=== PATIENT | female | born 1960 | race Caucasian/White ===

== ENCOUNTER 2020-05-11 15:58 | Emergency (ER) | payer MEDICARE, BC, SELFPAY ==
[2020-05-11 16:15] VITALS: BP 135/84; PULSE 73; RESP 16; TEMP 36.8; O2SAT 99; BMI 25.8
--- NOTE | 2020-05-11 17:57 | PC.NURSE ---
Patient has had long standing history of uti or uretheral spasm. Currently on Cipro and OTC pyridum for urinary symptoms. Patient states she has had a change in stream I feel like I have to push to get it out Has noticed some bodyaches, fatigue, and nausea
[2020-05-11 18:03] LABS: Add Manual Diff / Slide Review NO; Basophils Absolute Auto 0 /uL (0-100); Basophils Percent Auto 0.6 % (0-2); Eosinophils Absolute Auto 100 /uL (0-450); Hematocrit 39.9 % (36-46); Hemoglobin 13.2 g/dL (12.0-16.0); Lymphocytes Absolute Auto 1400 /uL (1100-4500); Lymphocytes Percent Auto 26.1 % (25-40); Mean Corpuscular Hemoglobin 27.7 PG (26-34); Mean Corpuscular Volume 83.9 fL (80-100); Monocytes Absolute Auto 400 /uL (0-900); Monocytes Percent Auto 7.2 % (3-14); Neutrophils Absolute Auto 3400 /uL (1500-7000); Neutrophils Percent Auto 64.1 % (50-75); Platelet Count 291 X10^3/uL (150-400); Red Blood Cell Count 4.76 X10^6/uL (4.0-5.2); Red Cell Distribution Width 14.1 % (11.6-14.8); White Blood Cell Count 5.3 X10^3/uL (4.5-11.0)
[2020-05-11 18:08] LABS: Prothrombin Time 10.9 SECONDS (10.1-12.7)
[2020-05-11 18:10] LABS: PTT Partial Thromboplastin Tim 33 SECONDS (26.4-36.2)
[2020-05-11 18:13] LABS: Alanine Aminotransferase 52 IU/L (<35); Albumin 4.4 g/dL (3.5-5.0); Albumin Globulin Ratio 1.3 (1.0-2.8); Alkaline Phosphatase 127 U/L (38-126); Aspartate Aminotransferase 35 IU/L (14-36); Bilirubin Total 0.3 mg/dL (0.2-1.3); Blood Urea Nitrogen 12 mg/dL (7-17); Calcium 10.1 mg/dL (8.4-10.2); Carbon Dioxide 33 mmol/L (22-32); Chloride 105 mmol/L (98-107); Estimated Glomerular Filt Rate 56.6 mL/min (>60); Globulin 3.4 g/dL (1.7-4.1); Glucose 93 mg/dL (80-110); HEMOLYSIS < 15 (0-50); Lipase 62 U/L (23-300); Potassium 4.2 mmol/L (3.4-5.1); Sodium 142 mmol/L (137-145); Total Protein 7.8 g/dL (6.3-8.2)
--- NOTE | 2020-05-11 18:19 | ED_ITS ---
HPI - General Adult General Chief complaint: Urogenital-Female Stated complaint: trouble urination Time Seen by Provider: 05/11/20 18:01 Source: patient Mode of arrival: Ambulatory Limitations: no limitations History of Present Illness HPI narrative: 59-year-old female here for evaluation of problems with urinating. He states that several years ago she was diagnosed with interstitial cystitis. Has been on Macrobid for a while but not currently on that medicine. She did follow-up with Urology who she states ?did nothing? but change her bladder spasm medications. She is here today because over the past couple days her symptoms seem to be worsening. She did by [employer] off of the Internet and has been on this for the past 5-6 days without any improvement. She also describes pelvic pain. Related Data Allergies Allergy/AdvReac Type Severity Reaction Status Date / Time dextroamphetamine Allergy Verified 05/11/20 16:15 lidocaine Allergy Verified 05/11/20 16:15 Sulfa (Sulfonamide Allergy Verified 05/11/20 16:15 Antibiotics) Review of Systems Constitutional Constitutional: Denies fever(s) and Denies headache(s) ENT Ears, Nose, Mouth, and Throat: Denies headache(s) Cardiovascular Cardiovascular: Denies chest pain and Denies dyspnea Respiratory Respiratory: Denies dyspnea Gastrointestinal Gastrointestinal: Denies abdominal pain, Denies nausea and Denies vomiting Genitourinary Genitourinary: Denies hematuria, Reports dysuria, Reports urinary frequency and Denies urinary incontinence Genitourinary: Denies hematuria, Reports urinary frequency, Reports dysuria, Denies urinary incontinence and Denies vaginal discharge Musculoskeletal Musculoskeletal: Denies arthralgias and Denies myalgias Integumentary/Breasts Skin/Breast: Denies rash Neurologic Neurologic: Denies headache(s) Hematologic/Lymphatic Hematologic/Lymphatic: Denies easy bleeding and Denies easy bruising Allergic/Immunologic Allergic/Immunologic: Denies urticaria Patient History Medical History Interstitial cystitis Social History Smoking Status: Never smoker Smoking Status: Never smoker Substance Use Type: does not use Exam Initial Vital Signs Initial Vital Signs: Vital Signs Temperature 98.2 F 05/11/20 16:15 Pulse Rate 73 05/11/20 16:15 Respiratory Rate 16 05/11/20 16:15 Blood Pressure 135/84 05/11/20 16:15 Pulse Oximetry 99 05/11/20 16:15 Const General: cooperative and comfortable Limitations: mental status not altered HENAK Head: normal to inspection and normocephalic Resp Effort & Inspection: normal respiratory effort Cardio Rate: regular rate GI Inspection: non-distended Palpation: soft Other: Right-sided adnexa pain Back/Spine/Pelvis Back: No CVA tenderness Skin Lesions: no lesions Rashes: no rashes Neuro General: patient alert and patient awake Extrem General: capillary refill normal Psych Appearance: grossly normal and well kempt Course Orders Ordered: ED Orders 05/11/20 17:50 Complete Blood Count AUTO DIFF Stat Comprehensive Metabolic Panel Stat Lipase Stat Partial Thromboplastin Time Stat Prothrombin Time INR Stat 05/11/20 18:19 US pelvic complete Stat Vital Signs Vital signs: Vital Signs - 8 hr 05/11/20 16:15 05/11/20 20:25 Temperature 98.2 F Pulse Rate 73 67 Respiratory Rate 16 16 Blood Pressure 135/84 103/79 Pulse Oximetry 99 98 Medical Decision Making Medical Records Medical records reviewed: Yes I reviewed the patient's medical records. Lab Data Lab results reviewed: Yes I reviewed the patient's lab results. Result diagrams: 05/11/20 17:50 05/11/20 17:50 Labs: Lab Results 05/11/20 05/11/20 05/11/20 Range/Units 17:50 17:50 17:50 WBC 5.3 (4.5-11.0) X10^3/uL RBC 4.76 (4.0-5.2) X10^6/uL Hgb 13.2 (12.0-16.0) g/dL Hct 39.9 (36-46) % MCV 83.9 (80-100) fL MCH 27.7 (26-34) PG MCHC 33.0 (30-36) % RDW 14.1 (11.6-14.8) % Plt Count 291 (150-400) X10^3/uL Neut % (Auto) 64.1 (50-75) % Lymph % (Auto) 26.1 (25-40) % Arthur % (Auto) 7.2 (3-14) % Eos % (Auto) 2.0 (2-4) % Baso % (Auto) 0.6 (0-2) % Neut # (Auto) 3400 (8957-6403) /uL Lymph # (Auto) 1400 (5059-3265) /uL Arthur # (Auto) 400 (0-900) /uL Eos # (Auto) 100 (0-450) /uL Baso # (Auto) 0 (0-100) /uL PT 10.9 (10.1-12.7) SECONDS INR 1.0 (0.9-1.3) APTT 33 (26.4-36.2) SECONDS Sodium 142 (137-145) mmol/L Potassium 4.2 (3.4-5.1) mmol/L Chloride 105 (98-107) mmol/L Carbon Dioxide 33 H (22-32) mmol/L BUN 12 (7-17) mg/dL Creatinine 1.00 (0.52-1.04) mg/dL Estimated GFR 56.6 L (>60) mL/min BUN/Creatinine Ratio 12.0 (6-22) Glucose 93 (80-110) mg/dL Calcium 10.1 (8.4-10.2) mg/dL Total Bilirubin 0.3 (0.2-1.3) mg/dL AST 35 (14-36) IU/L ALT 52 H (<35) IU/L Alkaline Phosphatase 127 H (38-126) U/L Total Protein 7.8 (6.3-8.2) g/dL Albumin 4.4 (3.5-5.0) g/dL Globulin 3.4 (1.7-4.1) g/dL Albumin/Globulin Ratio 1.3 (1.0-2.8) Lipase 62 (23-300) U/L Urine Dip Bedside Urine Glucose Negative Bedside Urine Bilirubin - Negative Bedside Urine Ketone - Negative Urine Specific [place] 1.015 Bedside Urine Occult Blood - Negative Bedside Urine pH 7 Bedside Urine Protein - Negative Bedside Urine Urobilinogen - Negative Bedside Urine Nitrite - Negative Bedside Urine Leukocytes - Negative Esterase Point of care testing: Urine Dip Bedside Urine Glucose Negative Bedside Urine Bilirubin - Negative Bedside Urine Ketone - Negative Urine Specific [place] 1.015 Bedside Urine Occult Blood - Negative Bedside Urine pH 7 Bedside Urine Protein - Negative Bedside Urine Urobilinogen - Negative Bedside Urine Nitrite - Negative Bedside Urine Leukocytes - Negative Esterase Imaging Data US - abdomen: Radiologist's Impression: [address] [id number] ReportSigned Patient: Jessica RgR#: [id number]: 1960Acct:[id number]/Sex: 59 / FDate of Service: 05/11/20Loc: EDAccession Number: [id number] Procedure: US pelvic complete Ordering Provider: Jorge Slaughter D.O. PROCEDURE: US PELVIC COMPLETE INDICATIONS: PAIN TECHNIQUE: Real-time scanning was performed of the pelvic organs, with image documentation. Additional endovaginal scanning was necessary due to incomplete visualization of the adnexal and endometrial structures by transabdominal scanning. COMPARISON: None. FINDINGS: Transabdominal scanning: Limited scanning through the kidneys shows no hydronephrosis. No pathologic free abdominal or pelvic fluid. Endovaginal scanning: Uterus: The anteverted uterus is normal in size at 6.2 x 3.7 x 5.1 cm. The endometrium measures 4 mm in combined thickness. There is a 0.6 x 0.5 x 0.5 cm intramural uterine fibroid visualized in the midline, anterior uterine fundus. Ovaries: Right ovary measures 2.3 x 1.4 x 1.0 cm. There is a 1.4 cm simple cyst within the right ovary. Left ovary measures 2.0 x 1.1 x 0.8 cm. No suspicious ovarian or adnexal mass lesions. IMPRESSION: 1. No acute sonographic abnormalities identified in the pelvis. 2. Incidental note of a 6 mm intramural uterine fibroid. Dictated by: Stephan Harrison M.D. on 05/11/2020 at 19:01 Approved by: Stephan Harrison M.D. on 05/11/2020 at 19:03 [facility] Narrative Medical decision making narrative: Ultrasound shows no acute pathology. Her urine today shows no signs of infection however she has been on Cipro for the past several days. Rest of her labs are relatively unremarkable. A do not have a specific indication to switch any antibiotics. I informed her that she should stop taking the Cipro. Informed her that she should talk with her primary doctor about following up with a urologist. Feel we can hold on a CT scan today as her symptoms have been going on for an extended period of time prior to this visit. I have low suspicion for any acute surgical intra-abdominal pathology because of her exam in her history. We did discuss return precautions and follow-up instructions. She does have bladder spasm medications at home. Patient expressed understanding and agreement. Discharge Plan Departure Patient Disposition: Home Clinical Impression: Dysuria Instructions: DI for Dysuria -- Adult Activity Restrictions/Additional Instructions: I do recommend that you stop taking the Cipro as it is most likely not improving any of your current issues. I do recommend that you contact the Urology Department here at the hospital at [phone]. Also contact your primary provider for follow-up.
[2020-05-11 20:25] VITALS: BP 103/79; PULSE 67; RESP 16; O2SAT 98
== END 2020-05-11 20:25 | disposition home or self-care (01) ==
PROVIDERS: Emergency Medicine; Emergency Provider Emergency Medicine
DX: R30.0 Dysuria (principal)
CPT/HCPCS: 36415; 76830; 76856; 80053; 81003; 83690; 85025; 85610; 85730; 99283; 99284